=== PATIENT | male | born 1945 | race Caucasian/White ===

== ENCOUNTER → 2023-08-31 12:41 | Outpatient (REF) | payer MEDICARE, OTHER, SELFPAY | LOC: HWRCS 12:41 | PROVIDERS: ATTENDING PHYSICIAN Internal Medicine; FAMILY PHYSICIAN Internal Medicine | DX: I35.1 Nonrheumatic aortic (valve) insufficiency (principal); I31.39 Other pericardial effusion (noninflammatory); R42 Dizziness and giddiness | CPT/HCPCS: 93306 ==

== ENCOUNTER 2023-10-07 12:25 | Emergency (ER) | payer MEDICARE, OTHER, SELFPAY ==
[2023-10-07 12:27] VITALS: BP 155/72
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
== END 2023-10-07 15:01 | disposition home or self-care (01) ==
LOC: EMR 12:25
PROVIDERS: EMERGENCY PHYSICIAN Emergency Medicine; FAMILY PHYSICIAN Internal Medicine
DX: S99.812A Other specified injuries of left ankle, initial encounter (principal); X58.XXXA Exposure to other specified factors, initial encounter; I10 Essential (primary) hypertension; E78.5 Hyperlipidemia, unspecified; K21.9 Gastro-esophageal reflux disease without esophagitis; Z96.643 Presence of artificial hip joint, bilateral
CPT/HCPCS: 99283; 73610

== ENCOUNTER → 2023-10-10 10:36 | Outpatient (REF) | payer MEDICARE, OTHER, SELFPAY | LOC: RAD 10:36 | PROVIDERS: ATTENDING PHYSICIAN Internal Medicine Cardiovascular Disease; FAMILY PHYSICIAN Internal Medicine | DX: D15.1 Benign neoplasm of heart (principal); M79.89 Other specified soft tissue disorders; R60.0 Localized edema | CPT/HCPCS: 93971 ==

== ENCOUNTER 2023-10-29 08:29 | Inpatient (IN) | payer MEDICARE, OTHER, SELFPAY ==
[2023-10-05 13:22] VITALS: BMI 28.9
[2023-10-05 13:48] LABS: Hematocrit 31.3 % (39.0-52.0); Hemoglobin 10.5 g/dL (13.0-18.0); Mean Corp Hgb Conc. 33.5 g/dL (33.0-37.0); Mean Corpuscular Hgb 28.6 pg (27.0-31.0); Mean Corpuscular Volume 85.3 fL (80.0-94.0); Mean Platelet Volume 10.3 fL (7.4-10.4); Platelet Count 321 10^3/uL (130-400); Red Blood Cell Count 3.67 10^6/uL (4.70-6.10); Red Cell Dist. Width 14.8 % (11.5-14.5); White Blood Cell Count 6.9 10^3/uL (4.8-10.8)
[2023-10-05 14:00] LABS: ALT (SGPT) 17 U/L (0-50); AST (SGOT) 26 U/L (17-59); Albumin 4.5 g/dl (3.5-5.0); Alkaline Phosphatase 88 U/L (38-126); Blood Urea Nitrogen 29 mg/dl (9-20); Calcium 9.5 mg/dl (8.4-10.2); Carbon Dioxide 24 mmol/L (22-30); Chloride 103 mmol/L (98-107); Estimated Creatinine Clearance 46 ml/min; Glucose 95 mg/dl (70-99); Potassium 5.3 mmol/L (3.5-5.1); Sodium 136 mmol/L (135-145); Total Bilirubin 0.5 mg/dl (0.2-1.3); eGFR 51.13
[2023-10-05 14:30] LABS: Glycohemoglobin (HgbA1c) 5.6 % (4.0-5.6)
[2023-10-23 11:58] VITALS: BMI 28.9
[2023-10-29] VITALS (12 sets, daily range): BP systolic 99–156; BP diastolic 56–93; PULSE 84; O2SAT 96; BMI 28.7
[2023-10-29] MEDS: TYLENOL 650 MG PO ×3 (08:51→19:25)
[2023-10-29] MEDS: CELEBREX 200 MG PO (08:52)
[2023-10-29] MEDS: NORMOSOL-R/PLASMALYTE-A 1000 IV ×2 (08:52→13:47)
[2023-10-29] MEDS: NORMOSOL-R/PLASMALYTE-A IV (09:15)
--- NOTE | 2023-10-29 12:17 | W.PN.UPDATE ---
Update Note
Progress Note Update
O/A R TKA Dr. Winters 10/29/23
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
[id number]
Hx TIA-asa + statin
HTN
HLD
CKD 3-no NSAIDS/Duffy 2
GERD/Schatzki's ring--PPI
Anemia-normocytic likely secondary to CKD 3 -? underlying myeloproliferative disorder as GFR not greatly impaired--monitor hgb post-op
--- NOTE | 2023-10-29 12:26 | W.DS.TRANS ---
DC Summary - Doctor Of Dental Surgery
-
Discharge Instructions:
Sleep Apnea Risk Intermediate
Discharge Diagnosis/Procedures R KASSI Winters 10/29/23
Diet As tolerated
Activity With Walker
Driving Restrictions No driving
Bathing Restrictions OK to Shower
Other Services PT
Instructions:
Stand-Alone Forms:
Changes to Home Medications: Yes
Discharge Medications:
DC Medications w/original date entered in [employer]
atorvastatin 40 mg tablet 40 mg PO QPM #30 tabs 10/31/20
losartan 25 mg tablet 25 mg PO DAILY 10/23/23
metoprolol succinate 25 mg tablet,extended release 24 hr (Toprol XL) 12.5 mg PO DAILY Heart disease/condition 10/23/23
mupirocin 2 % topical ointment 1 applic topical BID 10/23/23
omeprazole 20 mg tablet,delayed release 20 mg PO HS 10/23/23
acetaminophen 325 mg tablet 650 mg (2 x 325 mg) PO QID #0 tabs 10/29/23
aspirin 325 mg tablet 325 mg PO DAILY blood clot prevention #1 tab 10/29/23�
dexamethasone 4 mg tablet 4 mg PO BID inflammation #6 tabs 10/29/23�
docusate sodium 100 mg capsule (Colace) 100 mg PO BID stool softner #1 cap 10/29/23�
magnesium hydroxide 400 mg/5 mL oral suspension (Milk of Magnesia) 30 ml PO HS PRN Constipation #1 mL 10/29/23�
ondansetron 4 mg disintegrating tablet 4 mg PO Q6H PRN n/v #20 tabs 10/29/23�
oxycodone 5 mg tablet 5 mg PO Q6H PRN 1 tab moderate pain, 2 tabs severe pain #30 tabs 10/29/23�
sennosides 8.6 mg tablet (Senokot) 17.2 mg (2 x 8.6 mg) PO BID laxative #2 tabs 10/29/23
Home Medication Changes
aspirin 325 mg tablet 325 mg PO DAILY blood clot prevention #1 tab 10/29/23�
dexamethasone 4 mg tablet 4 mg PO BID inflammation #6 tabs 10/29/23�
ondansetron 4 mg disintegrating tablet 4 mg PO Q6H PRN n/v #20 tabs 10/29/23�
oxycodone 5 mg tablet 5 mg PO Q6H PRN 1 tab moderate pain, 2 tabs severe pain #30 tabs 10/29/23�
Pending Results: No
[2023-10-29] MEDS: ROXICODONE 5 MG PO (13:46)
--- NOTE | 2023-10-29 14:18 | PTCARENOTE ---
Patient arrived at 14:18 from PACU in bed with scant drainage on (R) knee dressing; VSS; no complaints of pain; at bedside.
[2023-10-29] MEDS: ASPIRIN 325 MG PO (17:44)
[2023-10-29] MEDS: LIPITOR 40 MG PO (17:44)
[2023-10-29] MEDS: ANCEF 5 IV (19:24)
[2023-10-29] MEDS: COLACE 100 MG PO (19:25)
[2023-10-29] MEDS: SENOKOT 17.2 MG PO (19:25)
[2023-10-29] MEDS: DECADRON 4 MG PO (19:25)
[2023-10-29] MEDS: BACTROBAN 2% OINTMENT 1 APPLIC NASAL (19:26)
[2023-10-29] MEDS: NEURONTIN 300 MG PO (21:31)
[2023-10-29] MEDS: PROTONIX 40 MG PO (21:32)
[2023-10-29] MEDS: ROXICODONE 10 MG PO (23:12)
[2023-10-29] MEDS: TYLENOL PO (23:21)
[2023-10-30] MEDS: ANCEF 5 IV (02:27)
[2023-10-30] MEDS: TYLENOL 650 MG PO ×3 (02:27→13:34)
[2023-10-30 03:00] VITALS: BP 125/65
[2023-10-30] MEDS: ROXICODONE 10 MG PO ×2 (03:56→08:44)
[2023-10-30 07:20] VITALS: BP 145/71
[2023-10-30 08:45] LABS: Hepatitis C Antibody Negative (Negative)
[2023-10-30] MEDS: DECADRON 4 MG PO (08:46)
[2023-10-30] MEDS: SENOKOT 17.2 MG PO (08:46)
[2023-10-30] MEDS: COLACE 100 MG PO (08:47)
[2023-10-30] MEDS: ASPIRIN 325 MG PO (08:47)
[2023-10-30] MEDS: TOPROL XL 12.5 MG PO (08:47)
[2023-10-30] MEDS: BACTROBAN 2% OINTMENT 1 APPLIC NASAL (08:48)
[2023-10-30 09:10] VITALS: BP 136/75; PULSE 97; O2SAT 98
[2023-10-30 09:19] LABS: Hematocrit 27.3 % (39.0-52.0); Hemoglobin 9.3 g/dL (13.0-18.0)
--- NOTE | 2023-10-30 10:16 | CM ---
Admitted for R knee osteoarthritis
Met with pt at bedside
Reports he lives with his in a [place] community, single story home; 1 step to enter
Independent, active, drives
DME - Rolling walker, cane, raised toilet seat
SNF - denies past hx
HH - [facility] in past
Has ride home with
PCP - Amy Pichardo
Pharm - [facility]
Discussed PT recs outpatient physical therapy - has appt scheduled on 10/31 at 10:30AM - has Rx
Discussed IMM
Plan - anticipate home with outpatient physical therapy when medically ready
[2023-10-30 11:10] VITALS: BP 151/94
--- NOTE | 2023-10-30 11:45 | W.PN.ORTHO ---
Today's Communication / Plan
-
d/c
Assessment
.
Distal Motor Intact: Yes
Dressing:
Clean, dry and intact.
Assessment:
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
VMD-bgd-lnfpdxemmlc-stable on tele
Hx TIA-asa + statin
Anemia-normocytic likely secondary to CKD 3 -with underlying myeloproliferative disorder exacerbated by blood loss-patient was on oral iron following myxoma excision, however hgb chronically low-will check iron stores and infuse IV Ferrous Gluconate
if indicated-no need for PRBCs as patient is not hemodynamically compromised with no SOB, incisional bleeding, nor hypotension-repeat CBC Rx provided to be drawn at OP lab on 11/01/23-results to [facility]--have advised hematology eval at some point
for possible bone marrow bx
CKD 3-no NSAIDS/Duffy 2
GERD/Schatzki's ring + PPI inpatient -continue home Omeprazole at d/c
Left medial ankle stasis dermatitis which appears to be improved from possible pre-existing cellulitis--patient states this greatly improved s/p IV antibiotics and compression this visit--agree possibly not gout as patient states did not respond to
prior tx- possibility of secondary skin infection due to gouty flare or otherwise
--will provide Cefadroxil antibiotic prophylaxis for infection prevention w/ Dexamethasone and continue TEDs
Plan
.
Surgery / Date: R KASSI Winters 10/29/23
DVT Prophylaxis: Aspirin
Activity:
Out of bed.
PT/OT
Discharge Plan: Home w/ Outpatient PT
Subjective
.
.:
Patient resting comfortably.
Vital Signs and Labs
.
Vital Signs and Labs:
Lab Results
10/30/23 08:56
10/05/23 12:14
Temp Pulse Resp BP Pulse Ox
97.7 F 84 18 151/94 100
10/30/23 11:10 10/30/23 11:10 10/30/23 11:10 10/30/23 11:10 10/30/23 11:10
Non-invasive Hgb result: 11.0
Physical Exam
-
HEENT: No pallor, cyanosis, or jaundice. Throat clear.
NECK: Supple. No JVD.
RESPIRATORY: Lungs clear to auscultation.
CVS: S1, S2 normal. RRR.� No murmur, rub or gallop.
ABDOMEN: Soft, non-tender. No distension. BS+/normal.
EXTREMITIES: strength equal, no calf pain with palpation-left medial ankle mild hyperpigmentation, edema and scaling
PRINTING MACHINIST: AOx3. No focal deficits. ruby developer grossly intact
[2023-10-30 13:04] LABS: Iron 45 ug/dl (49-181)
[2023-10-30 13:13] LABS: Percent Saturation 19 % (20-50); Total Iron Binding Capacity 233 ug/dl (261-462)
[2023-10-30] MEDS: FERRLECIT 110 MG IV (13:34)
[2023-10-30 14:58] VITALS: BP 132/80
== END 2023-10-30 15:11 | disposition home or self-care (01) | DRG 470 ==
LOC: 2 SOUTH 08:29
PROVIDERS: Physician Assistant Medical; ADMITTING PHYSICIAN Specialist; FAMILY PHYSICIAN Internal Medicine
PROC: 0SRC0J9 Replacement of Right Knee Joint with Synthetic Substitute, Cemented, Open Approach (ICD-10-PCS; 2023-10-29)
DX: M17.11 Unilateral primary osteoarthritis, right knee (principal); D47.1 Chronic myeloproliferative disease; I12.9 Hypertensive chronic kidney disease with stage 1 through stage 4 chronic kidney disease, or unspecified chronic kidney disease; N18.31 Chronic kidney disease, stage 3a; I25.10 Atherosclerotic heart disease of native coronary artery without angina pectoris; I35.1 Nonrheumatic aortic (valve) insufficiency; E78.00 Pure hypercholesterolemia, unspecified; K21.9 Gastro-esophageal reflux disease without esophagitis; D63.1 Anemia in chronic kidney disease; R26.2 Difficulty in walking, not elsewhere classified; R73.03 Prediabetes; J45.909 Unspecified asthma, uncomplicated; Z96.643 Presence of artificial hip joint, bilateral; Z86.73 Personal history of transient ischemic attack (TIA), and cerebral infarction without residual deficits; Z89.411 Acquired absence of right great toe; Z79.82 Long term (current) use of aspirin; Z79.899 Other long term (current) drug therapy
CPT/HCPCS: 36415; 73560; 80053; 82728; 83036; 83540; 83550; 85014; 85018; 85027; 86803; 86850; 86900; 86901; 87070; 97110; 97162; 97166; 97530; 97535; C1713; C1776; J2916

== ENCOUNTER → 2023-11-01 11:49 | Outpatient (REF) | payer MEDICARE, OTHER, SELFPAY ==
[2023-11-01 12:30] LABS: Hematocrit 25.6 % (39.0-52.0); Hemoglobin 8.6 g/dL (13.0-18.0); Mean Corp Hgb Conc. 33.6 g/dL (33.0-37.0); Mean Corpuscular Volume 83.4 fL (80.0-94.0); Mean Platelet Volume 9.8 fL (7.4-10.4); Platelet Count 325 10^3/uL (130-400); Red Blood Cell Count 3.07 10^6/uL (4.70-6.10); Red Cell Dist. Width 15.7 % (11.5-14.5); White Blood Cell Count 13.1 10^3/uL (4.8-10.8)
[2023-11-01 13:21] LABS: % Basophils 0.1 % (0-2); % Immature Granulocytes 5.4 % (0-0.5); % Monocytes 11.1 % (1.7-9.3); % Neutrophils 77.4 % (42.2-75.2); Absolute Immature Granulocytes 0.7 10^3/uL (0-0.05); Absolute Lymphocytes 0.8 10^3/uL (1.2-3.4); Absolute Monocytes 1.5 10^3/uL (0.1-0.6); Absolute Neutrophils 10.1 10^3/uL (1.4-6.5); Nucleated Red Blood Cells % 0 % (-)
== END ==
LOC: REG 11:49
PROVIDERS: ATTENDING PHYSICIAN Physician Assistant Medical; FAMILY PHYSICIAN Internal Medicine; OTHER PHYSICIAN Specialist
DX: D64.9 Anemia, unspecified (principal)
CPT/HCPCS: 36415; 85025

== ENCOUNTER → 2025-01-19 10:05 | Outpatient (REF) | payer MEDICARE, OTHER, SELFPAY | LOC: HWRCS 10:05 | PROVIDERS: ATTENDING PHYSICIAN Internal Medicine; FAMILY PHYSICIAN Nurse Practitioner Family | DX: D15.1 Benign neoplasm of heart (principal); G45.9 Transient cerebral ischemic attack, unspecified; I10 Essential (primary) hypertension; I35.1 Nonrheumatic aortic (valve) insufficiency; I25.10 Atherosclerotic heart disease of native coronary artery without angina pectoris | CPT/HCPCS: 93306 ==